=== PATIENT | female | born 1975 | race Hispanic/Latino ===

== ENCOUNTER 2018-12-21 18:13 | Emergency (ER) | payer OTHER ==
[~2018-12-21] VITALS: Ht 162.6 cm; Wt 68.0 kg
--- OUTSIDE RECORDS SUMMARY | 2018-12-21 18:15 | XMS REPORT ---
Author Author Feli Marie Organization [employer] Address Unknown Phone Unavailable Care Team Providers Care District Adviser Name Role Phone Feli Marie CP Unavailable Allergies No Known Allergies Problems Problem Type Condition Code Onset Dates Condition Status Problem Degenerative lumbar disc M51.36 Active Problem Lumbar foraminal stenosis M99.83 Active Problem Fatigue due to exposure, initial encounter T73.2XXA Active Problem Back pain M54.9 Active Medications Medication Code System Code Instructions Start Date End Date Status Dosage Metronidazole [facility] [id number] 500 MG Orally every 12 hrs Jun 14, 2017 Jun 24, 2017 Active 1 tablet Results No Known Results Summary Purpose eClinicalWorks Submission
--- OUTSIDE RECORDS SUMMARY | 2018-12-21 18:15 | XMS REPORT | Continuity of Care Document ---
Author Author [place] Address Unknown Phone Unavailable Care Team Providers Care Solderer Electronic Name Role Phone [employer] Unavailable Unavailable Problems Problem Status Onset Date Classification Date Reported Comments Source M54.9; BACK PAIN Active 09/24/2015 [facility] ROUTINE Active 08/12/2015 [facility] [address]- HYPOPLASIA OF BREAST Active 08/11/2015 [facility] Degenerative lumbar disc Active Problem 09/06/2018 [facility] Primary Lumbar foraminal stenosis Active Problem 09/06/2018 [facility] Primary Fatigue due to exposure, initial encounter Active Problem 09/06/2018 [facility] Primary Back pain Active Problem 09/06/2018 [facility] Primary Vaginal irritation Active Diagnosis 06/14/2017 [facility] Primary Dysuria Active Diagnosis 06/14/2017 [facility] Primary Vaginal discharge Active Diagnosis 06/14/2017 [facility] Primary Rash and nonspecific skin eruption Active Diagnosis 08/15/2018 [facility] Primary Breast cancer screening Active Diagnosis 09/06/2018 [facility] Primary Vitamin D deficiency Active Diagnosis 09/06/2018 [facility] Primary ENCNTR SCREEN MAMMOGRAM FOR MALIGNANT NE Active [facility] BACK PAIN Active [facility] Medications Medication Details Route Status Patient Instructions Ordering Provider Order Date Source Levocetirizine Dihydrochloride 1 tablet in the evening Orally Active 5 MG Orally Once a day Frank 08/14/2018 [facility] Primary PredniSONE 1 tablet Orally Active 20 mg Orally Once a day Frank 08/14/2018 [facility] Primary Keflex 1 capsule Orally Active 500 mg Orally every 12 hrs Frank 07/30/2018 [facility] Primary Nystatin 1 application to affected area Externally Active 073672 UNIT/GM Externally Twice a day Frank 07/30/2018 [facility] Primary Nystatin-Triamcinolone 1 application to affected area Externally Active 703466-0.1 UNIT/GM Externally Twice a day Frank 07/30/2018 [facility] Primary Triamcinolone Acetonide 1 application to affected area Externally Active 0.1 % Externally Twice a day Frank 07/30/2018 [facility] Primary Metronidazole 1 tablet Orally Active 500 MG Orally every 12 hrs Frank 06/14/2017 [facility] Primary Fluconazole 1 tablet Orally Active 150 MG Orally daily Frank 06/13/2017 [facility] Primary Meloxicam 1 tablet Orally Active 15 MG Orally Once a day Frank 04/07/2016 [facility] Primary Robaxin-750 1 tablet Orally Active 750 MG Orally at night Frank 09/21/2015 [facility] Primary Naproxen 1 tablet Orally Active 500 mg Orally three times a day (tid) Frank 09/21/2015 [facility] Midazolam 1 mg, 1 mL, Route: IVP, Drug form: INJ, Q5Min, Dosing Weight 64.545, kg, PRN Anxiety, Start date: 08/21/15 12:24:00, Duration: 2 doses or times, Stop date: Limited # of timesNotes: (Same as: Versed) MEDICATION WASTE Product Size: 2 mg Product Wasted: ___ mg Inactive 08/21/2015 [facility] Atropine 0.2 mg, 2 mL, Route: IVP, Drug form: INJ, Q5Min, Dosing Weight 64.545, kg, PRN Other -See Comment, as needed; for symptomatic pulse rate Inactive 08/21/2015 [facility] Naloxone 0.04 mg, 0.1 mL, Route: IVP, Drug form: INJ, Q2MIN, Dosing Weight 64.545, kg, PRN Narcotic Reversal, Start date: 08/21/15 12:24:00, Duration: 8 doses or times, Stop date: Limited # of timesNotes: Same as Narcan Inactive 08/21/2015 [facility] Flumazenil 0.2 mg, 2 mL, Route: IVP, Drug form: INJ, PRN, Dosing Weight 64.545, kg, PRN Benzodiazepine Reversal, Initial dose, Start date: 08/21/15 12:24:00, Duration: 30 day, Stop date: 09/20/15 13:23:00Notes: (Same as: Romazicon) Inactive 08/21/2015 [facility] Diphenhydramine 12.5 mg, 0.25 mL, Route: IVP, Drug form: INJ, Q6H, Dosing Weight 64.545, kg, PRN Itching, Start date: 08/21/15 12:24:00, Duration: 30 day, Stop date: 09/20/15 12:23:00Notes: (Same as: Benadryl) Inactive 08/21/2015 [facility] Ondansetron 4 mg, 2 mL, Route: IVP, Drug form: INJ, ONCE, Dosing Weight 64.545, kg, PRN Nausea & Vomiting, Start date: 08/21/15 12:24:00Notes: (Same as: Zofran) MEDICATION WASTE Product Size: 4 mg Product Wasted: ___ mg Inactive 08/21/2015 [facility] Labetalol 10 mg, 2 mL, Route: IVP, Drug form: INJ, Q5Min, Dosing Weight 64.545, kg, PRN Elevated BP, Start date: 08/21/15 12:24:00, Duration: 5 doses or times, Stop date: Limited # of timesNotes: (Same as: Normod yne, Trandate) Push over 2 minutes Give bolus over 2-3 minutes. Inactive 08/21/2015 [facility] Hydralazine 10 mg, 0.5 mL, Route: IVP, Drug form: INJ, Q20Min, Dosing Weight 64.545, kg, PRN Elevated BP, Start date: 08/21/15 12:24:00, Duration: 2 doses or times, Stop date: Limited # of timesNotes: (Same as: Apresoline) Push over 5 minutes Inactive 08/21/2015 [facility] Ketorolac 30 mg, 1 mL, Route: IVP, Drug form: INJ, ONCE, Dosing Weight 64.545, kg, Start date: 08/21/15 12:24:00, Duration: 1 doses or times, Stop date: 08/21/15 12:24:00Notes: (Same as:Toradol) IV bolus must be given >15 seconds. Give IM administration slowly and deeply into the muscle. Not for use > 4 days MEDICATION WASTE Product Size: 30 mg Product Wasted: ___ mg Inactive 08/21/2015 [facility] Meperidine 12.5 mg, 0.25 mL, Route: IVP, Drug form: INJ, Q30Min, Dosing Weight 64.545, kg, PRN Other -See Comment, For shivering, Start date: 08/21/15 12:24:00, Duration: 2 doses or times, Stop date: Limited # of timesNotes: (Same As: Demerol) Inactive 08/21/2015 [facility] Hydromorphone 0.5 mg, 0.25 mL, Route: IVP, Drug form: INJ, Q5Min, Dosing Weight 64.545, kg, PRN Pain Score 7-10, Start date: 08/21/15 12:24:00, Duration: 4 doses or times, Stop date: Limited # of timesNotes: (Same as: Dilaudid) Inactive 08/21/2015 [facility] ceFAZolin 2 gm, 100 mL, Route: IVPB, Drug form: INJ, PRE OP, Start date: 08/21/15 0:00:00, Duration: 1 day, Stop date: 08/21/15 23:59:00Notes: Same as: Ancef Inactive 08/21/2015 [facility] Allergies, Adverse Reactions, Alerts Substance Category Reaction Severity Reaction type Status Date Reported Comments Source N.K.D.A. Adverse Reaction Info Not Available Adverse Reaction Active 09/05/2018 [facility] Primary Immunizations No Data Provided for This Section Results Order Name Results Value Reference Range Date Interpretation Comments Source CHEM PANEL Glucose Lvl 92 70 - 99 08/12/2015 [facility] HEMATOLOGY Hgb 14.5 12.0 - 16.0 08/12/2015 [facility] HEMATOLOGY Hct 44.1 36.0 - 48.0 08/12/2015 [facility] Pathology Reports No Data Provided for This Section Diagnostic Reports Report Value Date Source Spine lumbar wo contrast MRI Study: Spine lumbar wo contrast MRI Clinical Indication: Back pain Comparison: None TECHNIQUE: Multiplanar, multisequence magnetic resonance imaging of the lumbar spine was performed without the administration of intravenous gadolinium contrast. FINDINGS: 5 nonrib-bearing lumbar vertebra are present. No acute compression fracture or subluxation is seen. No focal marrow signal intensity abnormality is noted. Mild disc desiccation in the lower lumbar spine is seen with minimal disc height loss at L4-L5 and L5-S1. The conus terminates at L1. Paravertebral soft tissues are unremarkable.. Findings by level: T12-L1: The disc is normal. There is no central or foraminal stenosis. The facet joints are unremarkable. L1-L2: The disc is normal. There is no central or foraminal stenosis. The facet joints are unremarkable. L2-L3: The disc is normal. There is no central or foraminal stenosis. The facet joints are unremarkable. L3-L4: Negative for significant disc bulge or protrusion. Mild facet arthrosis is seen. No spinal canal stenosis or neural foraminal narrowing is noted. L4-L5: Small annular disc bulge is present. Mild facet arthrosis and ligamentum flavum hypertrophy is present. There is moderate left lateral recess stenosis without neural foraminal narrowing. L5-S1: 5 mm broad-based left paracentral disc protrusion is seen. Mild facet arthrosis is noted. There is no spinal canal stenosis or neural foraminal narrowing. The cauda equina and nerve roots are unremarkable. IMPRESSION: 1. Degenerative changes of the lumbar spine with small annular disc bulge at L4- L5 and moderate left lateral recess stenosis. SL: [id number] 09/30/2015 [facility] Spine lumbar series DX Lumbar spine 5 views: There is normal alignment without fracture or dislocation. The disc spaces, facets and SI joints are within normal limits. There are no significant soft tissue abnormalities. IMPRESSION: No significant radiographic abnormalities in the lumbar spine. SL 13 09/21/2015 [facility] Digital Mammo Screening [place] - DIGITAL MAMMO SCREENING [place] BILATERAL DIGITAL SCREENING MAMMOGRAM WITH CAD: 08/12/2015 CLINICAL: Z12.31 Screening. Current study was evaluated with a Computer Aided Detection (CAD) system. Comparison is made to exam dated: 05/15/2014 mammogram - [facility]. The tissue of both breasts is extremely dense. This may lower the sensitivity of mammography. No significant masses, calcifications, or other findings are seen in either breast. There has been no significant interval change. IMPRESSION: BENIGN There is no mammographic evidence of malignancy. A 1 year screening mammogram is recommended. SUMMARY: As the patient has dense breast parenchyma, this could obscure additional abnormalities. The patient would likely benefit from a supplemental screening test such as bilateral ultrasound. This should be discussed with the patient by the referring physician. Kenzie Diego M.D. ap/penrad:08/12/2015 15:21:28 [place]: Erin Lloyd RT(R)(M), [facility] This exam was dictated and interpreted by [id number] for [facility], 12. letter sent: Normal [facility] Mammogram BI-RADS: 2 Benign 08/12/2015 [facility] Consultation Notes No Data Provided for This Section Discharge Summaries No Data Provided for This Section History and Physicals No Data Provided for This Section Vital Signs Vital Sign Value Date Comments Source Weight 146.0 09/05/2018 [facility] Primary Height 64 09/05/2018 [facility] Primary Temperature Oral (F) 98.5 F 09/05/2018 [facility] Primary Heart Rate 82 09/05/2018 [facility] Primary Diastolic (mm Hg) 71 09/05/2018 [facility] Primary Systolic (mm Hg) 105 09/05/2018 [facility] Primary Weight 149.0 08/14/2018 [facility] Primary Height 64 08/14/2018 [facility] Primary Temperature Oral (F) 98.0 F 08/14/2018 [facility] Primary Heart Rate 73 08/14/2018 [facility] Primary Diastolic (mm Hg) 81 08/14/2018 [facility] Primary Systolic (mm Hg) 128 08/14/2018 [facility] Primary Weight 152.9 07/30/2018 [facility] Primary Height 64 07/30/2018 [facility] Primary Temperature Oral (F) 97.7 F 07/30/2018 [facility] Primary Heart Rate 73 07/30/2018 [facility] Primary Diastolic (mm Hg) 82 07/30/2018 [facility] Primary Systolic (mm Hg) 128 07/30/2018 [facility] Primary Weight 149.7 06/13/2017 [facility] Primary Height 64 06/13/2017 [facility] Primary Temperature Oral (F) 98.1 F 06/13/2017 [facility] Primary Heart Rate 66 06/13/2017 [facility] Primary Diastolic (mm Hg) 75 06/13/2017 [facility] Primary Systolic (mm Hg) 122 06/13/2017 [facility] Primary Weight 146.5 04/07/2016 [facility] Primary Height 64 04/07/2016 [facility] Primary Temperature Oral (F) 97.9 F 04/07/2016 [facility] Primary Heart Rate 56 04/07/2016 [facility] Primary Diastolic (mm Hg) 73 04/07/2016 [facility] Primary Systolic (mm Hg) 114 04/07/2016 [facility] Primary Weight 146.7 10/02/2015 [facility] Primary Height 64 10/02/2015 [facility] Primary Temperature Oral (F) 98.4 F 10/02/2015 [facility] Primary Heart Rate 70 10/02/2015 [facility] Primary Diastolic (mm Hg) 77 10/02/2015 [facility] Primary Systolic (mm Hg) 115 10/02/2015 [place] [facility] Primary Weight 144.5 09/24/2015 [place] [facility] Primary Height 64 09/24/2015 [facility] Primary Temperature Oral (F) 98.5 F 09/24/2015 [facility] Primary Heart Rate 67 09/24/2015 [facility] Primary Diastolic (mm Hg) 73 09/24/2015 [facility] Primary Systolic (mm Hg) 111 09/24/2015 [facility] Primary Weight 145.1 09/21/2015 [facility] Primary Height 64 09/21/2015 [facility] Primary Temperature Oral (F) 98.4 F 09/21/2015 [facility] Primary Heart Rate 69 09/21/2015 [facility] Primary Diastolic (mm Hg) 70 09/21/2015 [facility] Primary Systolic (mm Hg) 107 09/21/2015 [facility] Primary Respitory Rate 15 08/21/2015 [facility] Systolic (mm Hg) 101 08/21/2015 [facility] Diastolic (mm Hg) 57 08/21/2015 [facility] Systolic (mm Hg) 93 08/21/2015 [facility] Diastolic (mm Hg) 47 08/21/2015 [facility] Respitory Rate 16 08/21/2015 [facility] Systolic (mm Hg) 94 08/21/2015 [facility] Diastolic (mm Hg) 46 08/21/2015 [facility] Respitory Rate 16 08/21/2015 [facility] Height 162.56 cm 08/12/2015 [facility] BMI Calculated 24.43 08/12/2015 [facility] Weight 64.545 08/12/2015 [facility] Encounters Location Location Details Encounter Type Encounter Number Reason For Visit Attending Provider ADM Date DC Date Status Source [facility] [place] [facility] [id number] Sidney Solomon 05/15/2014 05/16/2014 SAIRA Fleming [facility] Outpatient [id number] Marya Blackburn 08/12/2015 08/13/2015 [facility] OBS Day Surgery [id number] Marya Alexey 08/21/2015 08/21/2015 [facility] Primary Care New patient here with lower back pain, [id number] 09/21/2015 09/21/2015 [facility] Primary Care New patient here with lower back pain, [id number] 09/21/2015 09/21/2015 [facility] Primary Care New patient here with lower back pain, [id number] 09/21/2015 09/21/2015 [facility] Care New patient here with lower back pain, [id number] 09/21/2015 09/21/2015 [facility] Primary Care Patient here for physical. [id number] 09/24/2015 09/24/2015 [facility] Care Patient here for physical. [id number] 09/24/2015 09/24/2015 [facility] Patient here for physical. [id number] 09/24/2015 09/24/2015 [facility] Outpatient [id number] Feli Marie 10/01/2015 10/01/2015 [facility] Primary Care Patient here to go over abnormal MRI results [id number] 10/02/2015 10/02/2015 [facility] Patient here to go over abnormal MRI results [id number] 10/02/2015 10/02/2015 [facility] Primary Care patient here with complains of right leg pain [id number] 04/07/2016 04/07/2016 [facility] Primary Procedures Procedure Code Date Perfomer Comments Source Bilateral tubal ligation [id number] [facility] Bilateral tubal ligation [id number] [facility] Bilateral tubal ligation [id number] [facility] Assessment and Plan No Data Provided for This Section Plan of Care No Data Provided for This Section Social History Social History Date Source Social History ElementQualifiersDate Reported Tobacco Use: . Are you a: never smoker Apr 07, 2016 Alcohol Screening: . Points: 2, Interpretation: Negative Apr 07, 2016 Caffeine intake? . Status: Yes, What type: Coffee, How often? Daily Apr 07, 2016 New since last visit: none. Apr 07, 2016 Do you exercise? . Answer: Yes, Type: walking, running, How often? Weekly Apr 07, 2016 Do you drink alcohol? . Status: Yes, How often? Once per month Apr 07, 2016 04/07/2016 [facility] Social History TypeResponse Smoking Status Never smoker; Exposure to Tobacco Smoke None; Cigarette Smoking Last 365 Days No; Reg Smoking Cessation Counseling No 08/12/2015 [facility] Social History TypeResponse Smoking Status Never smoker; Exposure to Tobacco Smoke None; Cigarette Smoking Last 365 Days No; Reg Smoking Cessation Counseling No 08/12/2015 [facility] Social History TypeResponse Smoking Status Never smoker; Exposure to Tobacco Smoke None; Cigarette Smoking Last 365 Days No; Reg Smoking Cessation Counseling No 08/12/2015 [facility] Family History Value Date Source QualifierDescriptionCommentDate Reported Maternal Grandmother Comment not available Apr 07, 2016 Paternal Grandmother Comment not available Apr 07, 2016 Siblings Comment not available Apr 07, 2016 Maternal Grandfather Comment not available Apr 07, 2016 Children Comment not available Apr 07, 2016 Father unknown Comment not available Apr 07, 2016 Paternal Grandfather Comment not available Apr 07, 2016 Mother alive Comment not available Apr 07, 2016 Other: Comment not available Apr 07, 2016 04/08/2016 [facility] Primary QualifierDescriptionCommentDate Reported Maternal Grandmother Comment not available October 02, 2015 Paternal Grandmother Comment not available October 02, 2015 Siblings Comment not available October 02, 2015 Maternal Grandfather Comment not available October 02, 2015 Children Comment not available October 02, 2015 Father unknown Comment not available October 02, 2015 Paternal Grandfather Comment not available October 02, 2015 Mother alive Comment not available October 02, 2015 Other: Comment not available October 02, 2015 10/04/2015 [facility] Primary QualifierDescriptionCommentDate Reported Maternal Grandmother Comment not available September 24, 2015 Paternal Grandmother Comment not available September 24, 2015 Siblings Comment not available September 24, 2015 Maternal Grandfather Comment not available September 24, 2015 Children Comment not available September 24, 2015 Father unknown Comment not available September 24, 2015 Paternal Grandfather Comment not available September 24, 2015 Mother alive Comment not available September 24, 2015 Other: Comment not available September 24, 2015 09/25/2015 [facility] Primary QualifierDescriptionCommentDate Reported Maternal Grandmother Comment not available September 21, 2015 Paternal Grandmother Comment not available September 21, 2015 Siblings Comment not available September 21, 2015 Maternal Grandfather Comment not available September 21, 2015 Children Comment not available September 21, 2015 Father unknown Comment not available September 21, 2015 Paternal Grandfather Comment not available September 21, 2015 Mother alive Comment not available September 21, 2015 Other: Comment not available September 21, 2015 09/22/2015 [facility] Primary Advance Directives No Data Provided for This Section Functional Status No Data Provided for This Section
--- OUTSIDE RECORDS SUMMARY | 2018-12-21 18:15 | XMS REPORT ---
Author Author Feli Marie Organization [employer] Address Unknown Phone Unavailable Care Team Providers Care Police Shift Commander Name Role Phone Feli Marie CP Unavailable Allergies, Adverse Reactions, Alerts Substance Reaction Event Type N.K.D.A. Info Not Available Non Drug Allergy Problems Problem Type Condition Code Onset Dates Condition Status Problem Degenerative lumbar disc M51.36 Active Problem Lumbar foraminal stenosis M99.83 Active Problem Fatigue due to exposure, initial encounter T73.2XXA Active Assessment Vaginal irritation N89.8 Active Assessment Dysuria R30.0 Active Problem Back pain M54.9 Active Assessment Vaginal discharge N89.8 Active Medications Medication Code System Code Instructions Start Date End Date Status Dosage Fluconazole [facility] [id number] 150 MG Orally daily Jun 13, 2017 Jun 14, 2017 Active 1 tablet Vital Signs Date/Time: Jun 13, 2017 BMI 25.69 Index Weight 149.7 lbs Height 64 in Temperature 98.1 F Cardiac Monitoring Heart Rate 66 /min Blood Pressure Diastolic 75 mm Hg Blood Pressure Systolic 122 mm Hg Results No Known Results Summary Purpose eClinicalWorks Submission
--- OUTSIDE RECORDS SUMMARY | 2018-12-21 18:15 | XMS REPORT ---
Author Author Feli Marie Organization [employer] Address Unknown Phone Unavailable Care Team Providers Care Special Deputy Sheriff Name Role Phone Feli Marie Unavailable Allergies, Adverse Reactions, Alerts Substance Reaction Event Type N.K.D.A. Info Not Available Non Drug Allergy Problems Problem Type Condition Code Onset Dates Condition Status Assessment Breast cancer screening Z12.31 Active Assessment Vitamin D deficiency E55.9 Active Problem Fatigue due to exposure, initial encounter T73.2XXA Active Problem Degenerative lumbar disc M51.36 Active Problem Vitamin D deficiency E55.9 Active Assessment Annual physical exam Z00.00 Active Problem Lumbar foraminal stenosis M99.83 Active Problem Back pain M54.9 Active Medications Medication Code System Code Instructions Start Date End Date Status Dosage Levocetirizine Dihydrochloride [facility] 65161065747 5 MG Orally Once a day Aug 14, 2018 October 13, 2018 Active 1 tablet in the evening Triamcinolone Acetonide [facility] 51397845490 0.1 % Externally Twice a day Jul 30, 2018 Active 1 application to affected area Vital Signs Date/Time: September 05, 2018 BMI 25.06 Index Weight 146.0 lbs Height 64 in Temperature 98.5 F Cardiac Monitoring Heart Rate 82 /min Blood Pressure Diastolic 71 mm Hg Blood Pressure Systolic 105 mm Hg Results No Known Results Summary Purpose eClinicalWorks Submission
--- OUTSIDE RECORDS SUMMARY | 2018-12-21 18:15 | XMS REPORT ---
Author Author Feli Marie Organization [employer] Address Unknown Phone Unavailable Care Team Providers Care Integrated Campaign Manager Name Role Phone FrankGetachew martinezjiha Unavailable Allergies, Adverse Reactions, Alerts Substance Reaction Event Type N.K.D.A. Info Not Available Non Drug Allergy Problems Problem Type Condition Code Onset Dates Condition Status Problem Degenerative lumbar disc M51.36 Active Problem Lumbar foraminal stenosis M99.83 Active Problem Fatigue due to exposure, initial encounter T73.2XXA Active Assessment Rash and nonspecific skin eruption R21 Active Problem Back pain M54.9 Active Medications Medication Code System Code Instructions Start Date End Date Status Dosage Nystatin-Triamcinolone [facility] 22919160603 496555-6.1 UNIT/GM Externally Twice a day Jul 30, 2018 August 27, 2018 Active 1 application to affected area PredniSONE ND 34207811809 20 mg Orally Once a day Aug 14, 2018 Aug 21, 2018 Active 1 tablet Triamcinolone Acetonide ND 87351551268 0.1 % Externally Twice a day Jul 30, 2018 Active 1 application to affected area Nystatin [facility] 30623351681 006792 UNIT/GM Externally Twice a day Jul 30, 2018 August 27, 2018 Active 1 application to affected area Levocetirizine Dihydrochloride ND 47701705352 5 MG Orally Once a day Aug 14, 2018 October 13, 2018 Active 1 tablet in the evening Vital Signs Date/Time: Aug 14, 2018 BMI 25.57 Index Weight 149.0 lbs Height 64 in Temperature 98.0 F Cardiac Monitoring Heart Rate 73 /min Blood Pressure Diastolic 81 mm Hg Blood Pressure Systolic 128 mm Hg Results No Known Results Summary Purpose eClinicalWorks Submission
--- OUTSIDE RECORDS SUMMARY | 2018-12-21 18:16 | XMS REPORT ---
Author Author Feli Marie Organization [employer] Address Unknown Phone Unavailable Care Team Providers Care Bag Washer Name Role Phone Feli Marie Unavailable Allergies, Adverse Reactions, Alerts Substance Reaction Event Type N.K.D.A. Info Not Available Non Drug Allergy Encounters Encounter Location Date New patient here with lower back pain, [facility] September 21, 2015 Problems Problem Type Condition ICD-9 Code Onset Dates Condition Status Assessment Back pain M54.9 Active Problem Back pain M54.9 Active Medications Medication Code System Code Instructions Start Date End Date Status Dosage Naproxen MEDISPAN [address]-85 500 mg Orally every 12 hrs September 21, 2015 October 06, 2015 Active 1 tablet as needed Robaxin-750 MEDISPAN [address]-44 750 MG Orally at night September 21, 2015 October 06, 2015 Active 1 tablet Social History Social History Element Qualifiers Date Reported Tobacco Use: . Are you a: never smoker September 21, 2015 Alcohol Screening: . Points: 2, Interpretation: Negative September 21, 2015 Caffeine intake? . Status: Yes, What type: Coffee, How often? Daily September 21, 2015 New since last visit: none. September 21, 2015 Do you exercise? . Answer: Yes, Type: walking, running, How often? Weekly September 21, 2015 Do you drink alcohol? . Status: Yes, How often? Once per month September 21, 2015 Family history Qualifier Description Comment Date Reported Maternal Grandmother Comment not available September [...] Other: Comment not available September 21, 2015 Vital Signs Date/Time: September 21, 2015 Weight 145.1 lbs Height 64 in Temperature 98.4 F Cardiac Monitoring Heart Rate 69 /min Blood Pressure Diastolic 70 mm Hg Blood Pressure Systolic 107 mm Hg Summary Purpose eClinicalWorks Submission
--- OUTSIDE RECORDS SUMMARY | 2018-12-21 18:16 | XMS REPORT ---
Author Author Feli Maire Organization [employer] Address Unknown Phone Unavailable Care Team Providers Care Costume Designer Name Role Phone Frank, Feli Unavailable Allergies, Adverse Reactions, Alerts Substance Reaction [...] Instructions Start Date End Date Status Dosage Keflex [facility] 95746454054 500 mg Orally every 12 hrs Jul 30, 2018 Aug 09, 2018 Active 1 capsule Nystatin [facility] 52240633213 537634 UNIT/GM Externally Twice a day Jul 30, 2018 August 27, 2018 Active 1 application to affected area Nystatin-Triamcinolone [facility] 19634429902 557368-9.1 UNIT/GM Externally Twice a day Jul 30, 2018 August 27, 2018 Active 1 application to affected area Triamcinolone Acetonide [facility] 24794256035 0.1 % Externally Twice a day Jul 30, 2018 Active 1 application to affected area Vital Signs Date/Time: Jul 30, 2018 BMI 26.24 Index Weight 152.9 lbs Height 64 in Temperature 97.7 F Cardiac Monitoring Heart Rate 73 /min Blood Pressure Diastolic 82 mm Hg Blood Pressure Systolic 128 mm Hg Results No Known Results Summary Purpose eClinicalWorks Submission
--- OUTSIDE RECORDS SUMMARY | 2018-12-21 18:16 | XMS REPORT | Summary of Care ---
Author Organization Unknown Address Unknown Phone Unavailable Encounter HQ Ellenr_yin(YULISSA) [id number] Date(s): 05/15/14 - 05/15/14 [facility] Outpatient Imaging - [address] [address] Discharge Disposition: Home Physician Attending: Sidney Solomon MD Reason for Visit V76.12 - SCREEN MAMMOGRA Problem List No data available for this section Allergies, Adverse Reactions, Alerts Substance Reaction Severity Status NKDA Active Medications No data available for this section Medications Administered During Your Visit No data available for this section Immunizations No data available for this section
--- OUTSIDE RECORDS SUMMARY | 2018-12-21 18:16 | XMS REPORT ---
Author Author Feli Marie [facility] eClinicalWorks Address Unknown Phone Unavailable Care Team Providers Care Pile Driving Nozzleman Name Role Phone Feli Marie Unavailable Allergies, Adverse Reactions, Alerts Substance Reaction Event Type N.K.D.A. Info Not Available Non Drug Allergy Encounters Encounter Location Date patient here with complains of right leg pain [facility] Apr 07, 2016 New patient here with lower back pain, [facility] September 21, 2015 Patient here for physical. [facility] September 24, 2015 Patient here to go over abnormal MRI results [facility] October 02, 2015 Problems Problem Type Condition ICD-9 Code Onset Dates Condition Status Problem Degenerative lumbar disc M51.36 Active Problem Lumbar foraminal stenosis M99.83 Active Problem Fatigue due to exposure, initial encounter T73.2XXA Active Assessment Lumbar foraminal stenosis M99.83 Active Assessment Fatigue due to exposure, initial encounter T73.2XXA Active Problem Back pain M54.9 Active Assessment Degenerative lumbar disc M51.36 Active Medications Medication Code System Code Instructions Start Date End Date Status Dosage Meloxicam MEDISPAN [address]-16 15 MG Orally Once a day Apr 07, 2016 Jun 06, 2016 Active 1 tablet Social History Social History [...] often? Once per month Apr 07, 2016 Family history Qualifier Description Comment Date Reported Maternal Grandmother Comment not available Apr [...] Other: Comment not available Apr 07, 2016 Vital Signs Date/Time: Apr 07, 2016 Weight 146.5 lbs Height 64 in Temperature 97.9 F Cardiac Monitoring Heart Rate 56 /min Blood Pressure Diastolic 73 mm Hg Blood Pressure Systolic 114 mm Hg Summary Purpose eClinicalWorks Submission
--- OUTSIDE RECORDS SUMMARY | 2018-12-21 18:16 | XMS REPORT | Summary of Care ---
Author Author [facility] Organization [facility] Address Unknown Phone Unavailable Encounter HQ Miguel_yin(YULISSA) [id number] Date(s): 09/30/15 - 09/30/15 [facility] [address] [place] [address]- Discharge Disposition: Home Attending Physician: Feli Marie MD Referring Physician: Feli Marie MD Vital Signs No data available for this section Problem List No data available for this section Allergies, Adverse Reactions, Alerts Substance Reaction Severity Status NKDA Active Medications No data available for this section Results No data available for this section Immunizations No data available for this section Procedures Procedure Date Related Diagnosis Body Site Bilateral tubal ligation Social History Social History Type Response Smoking Status Never smoker; Exposure to Tobacco Smoke None; Cigarette Smoking Last 365 Days No; Reg Smoking Cessation Counseling No Assessment and Plan No data available for this section
--- OUTSIDE RECORDS SUMMARY | 2018-12-21 18:16 | XMS REPORT | Summary of Care ---
Author Author [facility] Organization [facility] Address Unknown Phone Unavailable Encounter HQ Veronikantr_yin(YULISSA) [id number] Date(s): 08/12/15 - 08/12/15 [facility] [address] [place] [address]- Discharge Disposition: Home Attending Physician: Marya Blackburn MD Referring Physician: Marya Blackburn MD Vital Signs No data available for [...]
--- OUTSIDE RECORDS SUMMARY | 2018-12-21 18:16 | XMS REPORT | Summary of Care ---
Author Author [facility] Organization [facility] Address Unknown Phone Unavailable Encounter ARI Toro(YULISSA) [id number] Date(s): 08/21/15 - 08/21/15 [id number] [place] [address]- Discharge Disposition: Home Attending Physician: Marya Blackburn MD Referring Physician: Marya Blackburn MD Vital Signs 1 2 3 Most recent to oldest [Reference Range]: 162.56 cm (08/12/15 3:07 PM) Height 101/57 mmHg (08/21/15 1:30 PM) 93/47 mmHg (08/21/15 1:00 PM) 94/46 mmHg (08/21/15 12:45 PM) Blood Pressure [90-140/60-90 mmHg] 15 BRMIN (08/21/15 1:30 PM) 16 BRMIN (08/21/15 1:00 PM) 16 BRMIN (08/21/15 12:45 PM) Respiratory Rate [14-20 BRMIN] 64.545 kg (08/12/15 3:07 PM) Weight 24.43 m2 (08/12/15 3:07 PM) Body Mass Index Problem List No data available for this section Allergies, Adverse Reactions, Alerts Substance Reaction Severity Status NKDA Active Medications atropine 0.2 mg, 2 mL, Route: IVP, Drug form: INJ, Q5Min, Dosing Weight 64.545, kg, PRN O ther -See Comment, as needed; for symptomatic pulse rate < 80% of mean 50 BPM, Start date: 08/21/15 12:24:00, Duration: 30 day, Stop date: 09/20/15 13:23:00 Start Date: 08/21/15 Stop Date: 08/21/15 Status: Discontinued ceFAZolin 2 gm, 100 mL, Route: IVPB, Drug form: INJ, PRE OP, Start date: 08/21/15 0:00:00, Duration: 1 day, Stop date: 08/21/15 23:59:00 Notes: Same as: Ancef Start Date: 08/21/15 Stop Date: 08/21/15 Status: Discontinued diphenhydrAMINE 12.5 mg, 0.25 mL, Route: IVP, Drug form: INJ, Q6H, Dosing Weight 64.545, kg, PRN Itching, Start date: 08/21/15 12:24:00, Duration: 30 day, Stop date: 09/20/15 1 2:23:00 Notes: (Same as: Benadryl) Start Date: 08/21/15 Stop Date: 08/21/15 Status: Discontinued flumazenil 0.2 mg, 2 mL, Route: IVP, Drug form: INJ, PRN, Dosing Weight 64.545, kg, PRN Nito zodiazepine Reversal, Initial dose, Start date: 08/21/15 12:24:00, Duration: 30 day, Stop date: 09/20/15 13:23:00 Notes: (Same as: Romazicon) Start Date: 08/21/15 Stop Date: 08/21/15 Status: Discontinued hydrALAZINE 10 mg, 0.5 mL, Route: IVP, Drug form: INJ, Q20Min, Dosing Weight 64.545, kg, PRN Elevated BP, Start date: 08/21/15 12:24:00, Duration: 2 doses or times, Stop da te: Limited # of times Notes: (Same as: Apresoline)Push over 5 minutes Start Date: 08/21/15 Stop Date: 08/21/15 Status: Discontinued hydromorphone 0.5 mg, 0.25 mL, Route: IVP, Drug form: INJ, Q5Min, Dosing Weight 64.545, kg, [place] N Pain Score 7-10, Start date: 08/21/15 12:24:00, Duration: 4 doses or times, St op date: Limited # of times Notes: (Same as: Dilaudid) Start Date: 08/21/15 Stop Date: 08/21/15 Status: Discontinued ketOROLAC 30 mg, 1 mL, Route: IVP, Drug form: INJ, ONCE, Dosing Weight 64.545, kg, Start d ate: 08/21/15 12:24:00, Duration: 1 doses or times, Stop date: 08/21/15 12:24:00 Notes: (Same as:Toradol) IV bolus must be given >15 seconds. Give IM administration slowly and deeply into the muscle.Not for use > 4 days MEDICATION WASTE Product Size: 30 mgProduct Wasted: ___ mg Start Date: 08/21/15 Stop Date: 08/21/15 Status: Discontinued labetalol 10 mg, 2 mL, Route: IVP, Drug form: INJ, Q5Min, Dosing Weight 64.545, kg, PRN El evated BP, Start date: 08/21/15 12:24:00, Duration: 5 doses or times, Stop date: Limited # of times Notes: (Same as: Normodyne, Trandate)Push over 2 minutes Give bolus over 2-3 mi nutes. Start Date: 08/21/15 Stop Date: 08/21/15 Status: Discontinued meperidine 12.5 mg, 0.25 mL, Route: IVP, Drug form: INJ, Q30Min, Dosing Weight 64.545, kg, PRN Other -See Comment, For shivering, Start date: 08/21/15 12:24:00, Duration: 2 doses or times, Stop date: Limited # of times Notes: (Same As: Demerol) Start Date: 08/21/15 Stop Date: 08/21/15 Status: Discontinued midazolam 1 mg, 1 mL, Route: IVP, Drug form: INJ, Q5Min, Dosing Weight 64.545, kg, PRN Anx iety, Start date: 08/21/15 12:24:00, Duration: 2 doses or times, Stop date: Quinni srinivasa # of times Notes: (Same as: Versed) MEDICATION WASTE Product Size: 2 mgProduct Was srinivasa: ___ mg Start Date: 08/21/15 Stop Date: 08/21/15 Status: Discontinued naloxone 0.04 mg, 0.1 mL, Route: IVP, Drug form: INJ, Q2MIN, Dosing Weight 64.545, kg, [place] N Narcotic Reversal, Start date: 08/21/15 12:24:00, Duration: 8 doses or times, Stop date: Limited # of times Notes: Same as Narcan Start Date: 08/21/15 Stop Date: 08/21/15 Status: Discontinued naloxone 0.1 mg, 0.25 mL, Route: SUB-Q, Drug form: INJ, Q6H, Dosing Weight 64.545, kg, [place] N Itching, Start date: 08/21/15 12:24:00, Duration: 30 day, Stop date: 09/20/15 12:23:00 Notes: Same as Narcan Start Date: 08/21/15 Stop Date: 08/21/15 Status: Discontinued ondansetron 4 mg, 2 mL, Route: IVP, Drug form: INJ, ONCE, Dosing Weight 64.545, kg, PRN Naus ea & Vomiting, Start date: 08/21/15 12:24:00 Notes: (Same as: Aurelio) MEDICATION WASTE Product Size: 4 mgProduct Was srinivasa: ___ mg Start Date: 08/21/15 Stop Date: 08/21/15 Status: Discontinued Results CHEM PANEL Most recent to 1 oldest [Reference Range]: Glucose Lvl [70-99 92 mg/dL mg/dL] (08/12/15 3:22 PM) HEMATOLOGY Most recent to 1 oldest [Reference Range]: Hgb [12.0-16.0 g/dL] 14.5 g/dL (08/12/15 3:22 PM) Hct [36.0-48.0 %] 44.1 % (08/12/15 3:22 PM) Immunizations No data available for this section Procedures Procedure Date Related Diagnosis Body Site Bilateral tubal ligation Social History Social History Type Response Smoking Status Never smoker; Exposure to Tobacco Smoke None; Cigarette Smoking Last 365 Days No; Reg Smoking Cessation Counseling No Assessment and Plan No data available for this section
--- OUTSIDE RECORDS SUMMARY | 2018-12-21 18:16 | XMS REPORT ---
Author Author Feli Marie Organization [employer] Address Unknown Phone Unavailable Care Team Providers Care Leader Assembler Name Role Phone Feli Marie Unavailable Allergies, Adverse Reactions, Alerts Substance Reaction Event Type N.K.D.A. Info Not Available Non Drug Allergy Encounters Encounter Location Date New patient here with lower back pain, [facility] September 21, 2015 Patient here for physical. [facility] September 24, 2015 Patient here to go over abnormal MRI results [facility] October 02, 2015 Problems Problem Type Condition ICD-9 Code Onset Dates Condition Status Problem Lumbar foraminal stenosis M99.83 Active Problem Back pain M54.9 Active Problem Degenerative lumbar disc M51.36 Active Assessment Degenerative lumbar disc M51.36 Active Assessment Lumbar foraminal stenosis M99.83 Active Medications Medication Code System Code Instructions Start Date End Date Status Dosage Robaxin-750 MEDISPAN [address]-72 750 MG Orally at night September 21, 2015 October 06, 2015 Active 1 tablet Naproxen MEDISPAN [address]-33 500 mg Orally three times a day (tid) September 21, 2015 November 01, 2015 Active 1 tablet Social History Social History Element Qualifiers Date Reported Tobacco Use: . Are you a: never smoker October 02, 2015 Alcohol Screening: . Points: 2, Interpretation: Negative October 02, 2015 Caffeine intake? . Status: Yes, What type: Coffee, How often? Daily October 02, 2015 New since last visit: none. October 02, 2015 Do you exercise? . Answer: Yes, Type: walking, running, How often? Weekly October 02, 2015 Do you drink alcohol? . Status: Yes, How often? Once per month October 02, 2015 Family history Qualifier Description Comment Date Reported Maternal Grandmother Comment not available October [...] Other: Comment not available October 02, 2015 Vital Signs Date/Time: October 02, 2015 Weight 146.7 lbs Height 64 in Temperature 98.4 F Cardiac Monitoring Heart Rate 70 /min Blood Pressure Diastolic 77 mm Hg Blood Pressure Systolic 115 mm Hg Summary Purpose eClinicalWorks Submission
--- OUTSIDE RECORDS SUMMARY | 2018-12-21 18:16 | XMS REPORT ---
Author Author Feli Marie Organization [employer] Address Unknown Phone Unavailable Care Team Providers Care Medical Instrument Cable Fabricator Name Role Phone Feli Marie Unavailable Allergies, Adverse Reactions, Alerts Substance Reaction Event Type N.K.D.A. Info Not Available Non Drug Allergy Encounters Encounter Location Date New patient here with lower back pain, [facility] September 21, 2015 Patient here for physical. [facility] September 24, 2015 Problems Problem Type Condition ICD-9 Code Onset Dates Condition Status Assessment Annual physical exam Z00.00 Active Problem Back pain M54.9 Active Medications Medication Code System Code Instructions Start Date End Date Status Dosage Robaxin-750 MEDISPAN [address]-84 750 MG Orally at night September 21, 2015 October 06, 2015 Active 1 tablet Naproxen MEDISPAN [address]-00 500 mg Orally every 12 hrs September 21, 2015 October 06, 2015 Active 1 tablet as needed Social History Social History Element Qualifiers Date Reported Tobacco Use: . Are you a: never smoker September 24, 2015 Alcohol Screening: . Points: 2, Interpretation: Negative September 24, 2015 Caffeine intake? . Status: Yes, What type: Coffee, How often? Daily September 24, 2015 New since last visit: none. September 24, 2015 Do you exercise? . Answer: Yes, Type: walking, running, How often? Weekly September 24, 2015 Do you drink alcohol? . Status: Yes, How often? Once per month September 24, 2015 Family history Qualifier Description Comment Date [...] Other: Comment not available September 24, 2015 Vital Signs Date/Time: September 24, 2015 Weight 144.5 lbs Height 64 in Temperature 98.5 F Cardiac Monitoring Heart Rate 67 /min Blood Pressure Diastolic 73 mm Hg Blood Pressure Systolic 111 mm Hg Summary Purpose eClinicalWorks Submission
[2018-12-21] MEDS ORDERED: [UNRECOGNIZED DRUG - REMARK] (18:34)
== END 2018-12-21 19:29 | disposition home or self-care (01) ==
LOC: FSED 18:13
DX: N76.0 Acute vaginitis (principal); R31.29 Other microscopic hematuria
CPT/HCPCS: 80053; 81003; 85025; 99283